=== PATIENT | female | born 1970 | race African-American/Black ===

== ENCOUNTER 2017-04-30 22:21 | Emergency (ER) | payer OTHER ==
[~2017-04-30] VITALS: Ht 172.7 cm; Wt 100.7 kg
[2017-04-30 22:25] VITALS: BP_SYST 134; BP_SYST 150; BP_DIAS 82; BP_DIAS 92; PULSE 93; PULSE 97; RESP 16; TEMP 98.2; O2SAT 98
[2017-04-30] MEDS ORDERED: SODIUM CHLOR 0.9% 1000 ML INJ 1,000 ML IV ONE (22:31)
--- NOTE | 2017-04-30 22:36 | PD ---
HPI Chief Complaint: Neuro Symptoms/ Deficits Time Seen by Provider: 22:26 Travel History International Travel<30 days: No Contact w/Intl Traveler<30days: No Traveled to known affect area: No History of Present Illness HPI The patient is a 47-year-old [place] female who presents to the emergency department for headache. The patient states she developed a headache 2 days ago that is located over the top of the head, throbbing, constant, and started 2 days ago. Approximately one hour prior to arrival, at 9:30 PM, the patient developed some numbness over the right ear and right side of the face. She denied any dysarthria or involvement of the upper or lower extremities. She denies any difficulty or weakness of the upper or lower extremities. She denies any numbness or tingling of the upper or lower extremities. The patient does have a history of diabetes and hypertension, states she lost weight and was taken off of her diabetic medications. She has not taken any medications for her blood pressure since 2010. The patient's symptoms are mild to moderate , started 2 days ago, and the numbness started one hour prior to arrival. There are no current alleviating or exacerbating factors. [facility] Past Medical History Diabetes: Yes (NO MEDS) Diminished Hearing: No Hypertension: Yes (NO MEDS) Social History Alcohol Use: No Tobacco Use: No Substance Use: No Allergies-Medications (Allergen,Severity, Reaction): Coded Allergies: No Known Allergies (Verified Adverse Reaction, Unknown, 04/30/17) Reported Meds & Prescriptions Reported Meds & Active Scripts Active No Active Prescriptions or Reported Medications Review of Systems Except as stated in HPI: all other systems reviewed are Neg General / Constitutional: No: Fever Eyes: No: Blurred Vision HENT: Positive: Headaches, No: Neck Stiffness, Neck Pain Cardiovascular: No: Chest Pain or Discomfort Respiratory: No: Shortness of Breath Gastrointestinal: No: Nausea, Vomiting, Abdominal Pain Neurologic: Positive: Headache, Paresthesia, Sensory Disturbance, No: Weakness , Dizziness, Focal Abnormalities, Coordination Problem, Change in Mentation, Slurred Speech Physical Exam Narrative GENERAL: Awake, alert, pleasant 47-year-old female who appears her stated age and is in no acute respiratory distress. SKIN: Focused skin assessment warm/dry. HEAD: Atraumatic. Normocephalic. EYES: Pupils equal and round. Pupils are 3 mm bilateral and reactive. EOMs are intact. Patient is able to see fingers at a distance of 2 feet without difficulty. ENT: No nasal bleeding or discharge. Mucous membranes pink and moist. Tongue and uvula are midline. NECK: Trachea midline. No JVD. No meningeal signs. CARDIOVASCULAR: Regular rate and rhythm. No murmur appreciated. RESPIRATORY: No accessory muscle use. Clear to auscultation. Breath sounds equal bilaterally. GASTROINTESTINAL: Abdomen soft, non-tender, nondistended. MUSCULOSKELETAL: No obvious deformities. No clubbing. No cyanosis. No edema. NEUROLOGICAL: Awake and alert. Patient is alert and oriented 5. Follows commands without difficulty. Smile is symmetric. There is no drift of the upper or lower extremities. Finger to nose is normal. [id number] is normal. Sensation is symmetric on the arms and legs. Sensation is symmetric on the V1 distribution of the forehead, however, diminished in the V2 and V3 distribution of the right side of the face. No dysarthria noted. PSYCHIATRIC: Appropriate mood and affect; insight and judgment normal. Data Data Last Documented VS Vital Signs Date Time Temp Pulse Resp B/P (MAP) Pulse Ox O2 Delivery O2 Flow Rate FiO2 04/30/17 23:05 92 16 142/82 (102) 99 Room Air 04/30/17 22:25 98.2 Orders Orders Complete Blood Count With Diff (04/30/17 22:31) Comprehensive Metabolic Panel (04/30/17 22:31) Prothrombin Time / Inr (Pt) (04/30/17 22:31) Act Partial Throm Time (Ptt) (04/30/17 22:31) Ct Brain W/O Iv Contrast(Rout) (04/30/17 22:31) Ecg Monitoring (04/30/17 22:31) Iv Access Insert/Monitor (04/30/17 22:31) Oximetry (04/30/17 22:31) Sodium Chloride 0.9% Flush (Ns Flush) (04/30/17 22:45) Prochlorperazine Inj (Compazine Inj) (04/30/17 22:45) Diphenhydramine Inj (Benadryl Inj) (04/30/17 22:45) Sodium Chlor 0.9% 1000 Ml Inj (Ns 1000 M (04/30/17 22:31) Morphine Inj (Morphine Inj) (04/30/17 22:45) Diatrizoate Liq ( Gastroview Liq) (04/30/17 22:58) Labs Laboratory Tests Test 04/30/17 22:42 White Blood Count 7.2 TH/MM3 Red Blood Count 4.79 MIL/MM3 Hemoglobin 12.7 GM/DL Hematocrit 39.7 % Mean Corpuscular Volume 82.9 FL Mean Corpuscular Hemoglobin 26.5 PG Mean Corpuscular Hemoglobin Concent 32.0 % Red Cell Distribution Width 12.9 % Platelet Count 246 TH/MM3 Mean Platelet Volume 9.9 FL Neutrophils (%) (Auto) 67.8 % Lymphocytes (%) (Auto) 25.4 % Monocytes (%) (Auto) 4.5 % Eosinophils (%) (Auto) 1.6 % Basophils (%) (Auto) 0.7 % Neutrophils # (Auto) 4.9 TH/MM3 Lymphocytes # (Auto) 1.8 TH/MM3 Monocytes # (Auto) 0.3 TH/MM3 Eosinophils # (Auto) 0.1 TH/MM3 Basophils # (Auto) 0.1 TH/MM3 CBC Comment DIFF FINAL Differential Comment Prothrombin Time 10.0 SEC Prothromb Time International Ratio 0.9 RATIO Activated Partial Thromboplast Time 26.8 SEC Blood Urea Nitrogen 15 MG/DL Creatinine 1.20 MG/DL Random Glucose 360 MG/DL Total Protein 7.4 GM/DL Albumin 3.5 GM/DL Calcium Level 8.8 MG/DL Alkaline Phosphatase 110 U/L Aspartate Amino Transf (AST/SGOT) 24 U/L Alanine Aminotransferase (ALT/SGPT) 39 U/L Total Bilirubin 0.3 MG/DL Sodium Level 132 MEQ/L Potassium Level 4.1 MEQ/L Chloride Level 98 MEQ/L Carbon Dioxide Level 24.0 MEQ/L Anion Gap 10 MEQ/L Estimat Glomerular Filtration Rate 59 ML/MIN [facility] Medical Decision Making Medical Screen Exam Complete: Yes Emergency Medical Condition: Yes Medical Record Reviewed: Yes Interpretation(s) CT of the brain without contrast reveals negative exam. Nothing acute. Laboratory Tests Test 04/30/17 22:42 White Blood Count 7.2 TH/MM3 Red Blood Count 4.79 MIL/MM3 Hemoglobin 12.7 GM/DL Hematocrit 39.7 % Mean Corpuscular Volume 82.9 FL Mean Corpuscular Hemoglobin 26.5 PG Mean Corpuscular Hemoglobin Concent 32.0 % Red Cell Distribution Width 12.9 % Platelet Count 246 TH/MM3 Mean Platelet Volume 9.9 FL Neutrophils (%) (Auto) 67.8 % Lymphocytes (%) (Auto) 25.4 % Monocytes (%) (Auto) 4.5 % Eosinophils (%) (Auto) 1.6 % Basophils (%) (Auto) 0.7 % Neutrophils # (Auto) 4.9 TH/MM3 Lymphocytes # (Auto) 1.8 TH/MM3 Monocytes # (Auto) 0.3 TH/MM3 Eosinophils # (Auto) 0.1 TH/MM3 Basophils # (Auto) 0.1 TH/MM3 CBC Comment DIFF FINAL Differential Comment Prothrombin Time 10.0 SEC Prothromb Time International Ratio 0.9 RATIO Activated Partial Thromboplast Time 26.8 SEC Blood Urea Nitrogen 15 MG/DL Creatinine 1.20 MG/DL Random Glucose 360 MG/DL Total Protein 7.4 GM/DL Albumin 3.5 GM/DL Calcium Level 8.8 MG/DL Alkaline Phosphatase 110 U/L Aspartate Amino Transf (AST/SGOT) 24 U/L Alanine Aminotransferase (ALT/SGPT) 39 U/L Total Bilirubin 0.3 MG/DL Sodium Level 132 MEQ/L Potassium Level 4.1 MEQ/L Chloride Level 98 MEQ/L Carbon Dioxide Level 24.0 MEQ/L Anion Gap 10 MEQ/L Estimat Glomerular Filtration Rate 59 ML/MIN Differential Diagnosis Differential diagnosis includes complicated migraine, intracranial hemorrhage, subarachnoid hemorrhage, subdural hemorrhage, hypertensive urgency, hypertensive emergency, Ortega's palsy, CVA, TIA. Narrative Course The patient's symptoms started 2 days prior to arrival with a headache, the numbness is started one hour prior to arrival. The patient's NIHSS is 1 with diminished sensation of the V2 V3 distribution right side of face, I do not believe the patient would be a candidate for TPA as her headache started 2 days ago and she developed numbness of the right side of face one hour prior to arrival. The patient was administered morphine, Compazine, Benadryl, and IV fluids. The patient went immediately to CT for CT of the brain. CT of the brain is negative, no evidence of hemorrhage. The patient has a headache with slightly elevated blood pressure numbness right side of face, this may be complicated migraine, I doubt CVA/TIA. The patient's blood sugar is elevated at 360, the patient was administered 1 L of IV fluids. The patient was reevaluated at 11:23 PM, the patient's headache had resolved and the numbness/ tingling in the right side of face had resolved. I doubt the patient had a CVA/ TIA if she had a headache with her symptoms, we did discuss her elevated blood glucose and her elevated blood pressure. The patient will be placed back on metformin and low-dose lisinopril until she can follow-up with her primary physician, Dr. Lyon in. The patient will be provided a copy of her labs at discharge. The patient is comfortable with this plan of care and disposition. Diagnosis Primary Impression: Cephalgia Qualified Codes: R51 - Headache Additional Impressions: Paresthesia Hyperglycemia Hypertension Qualified Codes: I10 - Essential (primary) hypertension Patient Instructions: General Instructions, Narcotic given in the ED Additional Instructions: Please provide a patient a copy of her CT results and lab results at discharge. Medications as directed. Follow-up with your primary physician. Return if symptoms worsen or progress. Take a baby aspirin daily. Med/Other Pt SpecificInfo: Prescription(s) given Scripts Metformin (Metformin) 500 Mg Tab 500 MG PO BIDPC for Blood Sugar Management, #60 TAB 0 Refills Prov: Fitz Meraz MD 04/30/17 Lisinopril (Lisinopril) 5 Mg Tab 5 MG PO DAILY for Blood Pressure Management, #30 TAB 0 Refills Prov: Fizt Meraz MD 04/30/17 Disposition: 01 DISCHARGE HOME Condition: Stable Fitz Meraz MD Apr 30, 2017 22:36
[2017-04-30] MEDS ORDERED: PROCHLORPERAZINE INJ 10 MG/2 ML VIAL IVP ONE (22:45)
[2017-04-30] MEDS ORDERED: diphenhydrAMINE HCL 50 MG/ML VIAL IVP ONE (22:45)
[2017-04-30] MEDS ORDERED: SODIUM CHLORIDE 0.9% FLUSH 10 ML FLUSH IVF PRN (22:45)
[2017-04-30] MEDS ORDERED: MORPHINE SULFATE 4 MG/ML INJ IV PUSH ONE (22:45)
[2017-04-30 22:53] LABS: AUTOMATED NEUTROPHIL # 4.9 TH/MM3 (1.8-7.7); BASOPHIL # 0.1 TH/MM3 (0-0.2); BASOPHIL % 0.7 % (0.0-2.0); EOSINOPHIL # 0.1 TH/MM3 (0-0.4); EOSINOPHIL % 1.6 % (0.0-4.0); HEMATOCRIT 39.7 % (35.0-46.0); LYMPH % 25.4 % (9.0-44.0); LYMPHOCYTE # 1.8 TH/MM3 (1.0-4.8); MEAN CELL VOLUME 82.9 FL (80.0-100.0); MEAN CORPUSCULAR HEMOGLOBIN 26.5 PG (27.0-34.0); MONO % 4.5 % (0.0-8.0); NEUT % 67.8 % (16.0-70.0); PLATELET COUNT 246 TH/MM3 (150-450); RED BLOOD COUNT 4.79 MIL/MM3 (4.00-5.30); RED CELL DISTRIBUTION WIDTH 12.9 % (11.6-17.2); WHITE BLOOD COUNT 7.2 TH/MM3 (4.0-11.0)
[2017-04-30 22:54] LABS: HEMO FLAGS DIFF FINAL
[2017-04-30 22:55] VITALS: RESP 16; O2SAT 97
[2017-04-30] MEDS ORDERED: DIATRIZOATE MEGLUM/DIATRIZOATE SOD 9 ML CUP ONE (22:58)
[2017-04-30 23:05] VITALS: BP 142/82; PULSE 92; RESP 16; O2SAT 99
[2017-04-30 23:08] LABS: CHLORIDE 98 MEQ/L (98-107); POTASSIUM 4.1 MEQ/L (3.5-5.1); SODIUM (NA) 132 MEQ/L (136-145)
[2017-04-30 23:12] LABS: ANION GAP 10 MEQ/L (5-15); BLOOD UREA NITROGEN 15 MG/DL (7-18)
[2017-04-30 23:14] LABS: APTT (PATIENT) 26.8 SEC (24.3-30.1); INTERNATIONAL NORMALIZED RATIO 0.9 RATIO
[2017-04-30 23:15] LABS: ALT (GPT) 39 U/L (10-53); AST (GOT) 24 U/L (15-37); GLOMERULAR FILTRATION RATE 59 ML/MIN (>89)
[2017-04-30 23:16] LABS: TOTAL BILIRUBIN ADULT 0.3 MG/DL (0.2-1.0)
--- NOTE | 2017-04-30 23:17 | RADRPT ---
EXAM DATE/TIME: 04/30/2017 22:51 [facility] COMPARISON: CT BRAIN W/O CONTRAST, November 10, 2009, 14:54. INDICATIONS : Cephalgia. Numbness right side of face. RADIATION DOSE: 63.50 CTDIvol (mGy) MEDICAL HISTORY : Hypertension. Diabetes mellitus type 2. SURGICAL HISTORY : None. ENCOUNTER: Initial ACUITY: 3 days PAIN SCALE: 7/10 LOCATION: Bilateral frontal TECHNIQUE: Multiple contiguous axial images were obtained of the head. Using automated exposure control and adj ustment of the mA and/or kV according to patient size, radiation dose was kept as low as reasonably a chievable to obtain optimal diagnostic quality images. DICOM format image data is available electro nically for review and comparison. FINDINGS: CEREBRUM: The ventricles are normal for age. No evidence of midline shift, mass lesion, hemorrhage or acute in farction. No extra-axial fluid collections are seen. POSTERIOR FOSSA: The cerebellum and brainstem are intact. The 4th ventricle is midline. The cerebellopontine angle i s unremarkable. EXTRACRANIAL: The visualized portion of the orbits is intact. SKULL: The calvaria is intact. No evidence of skull fracture. CONCLUSION: Negative exam. Nothing acute. Adiel Red MD on April 30, 2017 at 23:14 Board Certified Radiologist. This report was verified electronically.
[2017-04-30 23:18] LABS: ALKALINE PHOSPHATASE 110 U/L (45-117)
[2017-04-30] MEDS ORDERED: LISI-519 PO (23:26)
[2017-04-30] MEDS ORDERED: METF500T PO (23:26)
[2017-04-30 23:29] VITALS: RESP 16
[2017-04-30 23:40] VITALS: BP 148/76
== END 2017-04-30 23:48 | disposition home or self-care (01) ==
LOC: PHED 22:21
DX: R51 Headache (principal); R20.2 Paresthesia of skin; E11.65 Type 2 diabetes mellitus with hyperglycemia; I10 Essential (primary) hypertension; R20.0 Anesthesia of skin
CPT/HCPCS: 70450; 80053; 85025; 85610; 85730; 96361; 96374; 96375; 99285; J0780; J1200; J2270; J7030; Q9963